=== PATIENT | female | born 1990 | race Caucasian/White ===

== ENCOUNTER 2017-03-02 16:46 | Emergency (ER) | payer MEDICAID ==
[2016-11-16 13:16] VITALS: BMI 31.4
[2017-03-02] MEDS ORDERED: guaiFENesin DM 200 mg-20 mg/10 ml UD PO STA (18:44)
[2017-03-02] MEDS ORDERED: Dextrose 5%/Lactated Ringer's 1,000 ML IV SCH (18:45)
[2017-03-02 20:01] LABS: RBC URINE 6 /hpf (0-3); URINE BACTERIA RARE (<OCC); URINE BILIRUBIN NEGATIVE (NEGATIVE); URINE BLOOD 2+ (NEGATIVE); URINE COLOR Yellow (YELLOW); URINE GLUCOSE (UA) NORMAL (Normal); URINE KETONE NEGATIVE (NEGATIVE); URINE LEUKOCYTE ESTERASE TRACE Leu/uL (Negative); URINE PROTEIN NEGATIVE (NEGATIVE); URINE UROBILINOGEN NORMAL mg/dL (0.2-1.0); WBC URINE 5 /hpf (0-5)
--- NOTE | 2017-04-22 00:19 | OBHP ---
Datetime: 03/02/2017 18:52 IP Adm Impression: , intrauterine IP Chief Complaint Other: Cough; abdominal pain IP Admit Plan: Observation/Evaluation IP Admit Plan Other: URI; candidiasis Admit Comment, IP Provider: 26 yo , LMP 07/16/16, revised LEONELA 04/29/17 (per patient), EGA 31w 6d c/o: 1) lower abdominal pain x 2-3 days. pressure; pain scale 7/10 to 8/10; no relief with tylenol; 2 ) coughing x 3 weeks. Non productive. Advised by Ob to take robitussin- no help. Completed one course of Z-pack 2 weeks ago. Denies fever, chills. Has 2 sick 1 y.o. infants at home (son and nephew). (+) mild occasional nausea; denies vomiting. Decreased appetite - e.g. today has only eaten a cookie, wi th cheese and juice. 3) vaginal spotting x 3 days. Last had sexual intercourse 07/2016. car e: [facility] - anemia. Last visit last week; next visit next week P Ob: x 2: 2010, male, 7lb 13 oz; 2015, male, 9 lb. 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 (For suppressive therapy at 36 weeks until delivery) PMH: anemia PSH: denies NKDA Meds: PNV, iron - QD Soc Hx: denies tobacco, illicit drug or EtOH use. FOB not involved. Lives with her children Fam Hx: Mother alive 50 y.o. DM. Father alive 51 y.o. HTN. MGM Breast cancer. (+) fam h /o throat and colon CA - maternal aunts P.E.: as above. Mildly obese, coughing; in NAD. Awake, alert, oriented to time, person and place. Pleasant and cooperative Assessment: 26 y.o. P2, 31w 6d: URI/ viral syndrome with possible post nasal drip. Presumptive vag inal candidiasis. Musculoskeletal pain - from all the coughing. record reviewed: ultrasound - no evidence of placenta praevia. Category 1 tracing. Clinically stable. Plan: 1) Rapid influenza culture 2) IVFs 3) Zofran, PRN 4) Tylenol 5) U/A 6) Observe Addendum: 2135 hours - Influenza negaative - U/A: blood 2+; leuk esterase trace; S.G. 1.016; ketones negative Assessment: as above. Patient advised to take benadryl 25 mg p.o. every 6 hours - may help cough. Also to F/U with medical provider for additoinal evaluation of persistent cough. lasatly, to eat smal l and frequent meals; and increase p.o. intacke of water. Patient is clincally stable. Plan: 1) Discharge home 2) Keep scheduled appointments 3) reviewed S/S PTL 4) Rx: terazol 3 vaginal cream 1 applcator pV QHS x 3 days Pelvic Type - PN: Adequate Extremities - PN: Normal Abdomen - PN: Normal Back - PN: Normal Breast - PN: Not Done Lungs - PN: Normal Heart - PN: Normal Thyroid - PN: Not Done Neurologic - PN: Normal HEENT - PN: Normal General - PN: Normal Presentation-Admit: Vertex FHR - Baseline A Provider: 160 Contraction Comments Provider: none Comments, ACOG Physical Exam: Skin: warm, dry, intact Abdomen: gravid. Soft. NOn tenderin allquadrants. Fundal height 34cm Perineum: no blood Spec: Initially no blood seen. No pooling; nitrazine (-). Upon removing speculum, dark red blood n oted at tip of speculum. All other systems reviewed and are negative. Gestation - Est Wks by US: 31w 6d Vital Signs Provider: Reviewed IP Chief Complaint: Vaginal bleeding NICHD Variability Prov Fetus A: Moderate 6-25bpm NICHD Accel Fetus A IP Provider: 10X10 FHR Category Provider Fetus A: Category I NICHD Decel Fetus A IP Provider: None Dilatation, Provider: 0 Effacement, Provider: 0 Station, Provider: -4 Genitourinary Exam: Normal DTRs - PN: Not Done
== END 2017-03-02 21:20 | disposition home or self-care (01) ==
LOC: C.EROB 16:46
DX: O26.899 Other specified pregnancy related conditions, unspecified trimester (principal); M54.9 Dorsalgia, unspecified
CPT/HCPCS: 81001; 87804; 99283; J2405; J7120

== ENCOUNTER 2017-04-22 00:05 | Inpatient (IN) | payer MEDICAID ==
--- NOTE | 2017-04-22 00:19 | C.PDOC ---
History Of Present Illness 26F presents after home deliver. pt was full term. has not yet delivered placenta. still c/o contractions at this time. Time Seen by Provider: 04/22/17 00:16 Past Medical History Vital Signs: Last Vital Signs Temp 98.1 F 04/23/17 11:00 Pulse 81 04/23/17 11:00 Resp 20 04/23/17 11:00 BP 112/64 04/23/17 11:00 Pulse Ox 99 04/23/17 11:00 - [facility] Procedures DELIVERY OF PRODUCTS OF CONCEPTION, EXTERNAL APPROACH (01/14/16) REPAIR PERINEUM MUSCLE, OPEN APPROACH (04/22/17) Family History: States: Unknown Family Hx - Social History Hx Tobacco Use: No Hx Alcohol Use: No Hx Substance Use: No - Immunization History Hx Tetanus Toxoid Vaccination: No Hx Influenza Vaccination: No Hx Pneumococcal Vaccination: No Review Of Systems Except As Marked, All Systems Reviewed And Found Negative. Constitutional: Negative for: Fever Cardiovascular: Negative for: Chest Pain Respiratory: Negative for: Cough, Shortness of Breath Gastrointestinal: Positive for: Abdominal Pain Physical Exam - Physical Exam Appears: Non-toxic, No Acute Distress Skin: Warm, Dry Head: Atraumatic Eye(s): bilateral: PERRL Oral Mucosa: Moist Cardiovascular: Rhythm Regular Respiratory: No Decreased Breath Sounds, No Accessory Muscle Use Gastrointestinal/Abdominal: Soft, Tenderness (suprapubic) Extremity: No Swelling Neurological/Psych: Oriented x3, Other (no focal deficits) ED Course And Treatment - Laboratory Results Result Diagrams: 04/23/17 07:15 04/22/17 01:26 Medical Decision Making Medical Decision Making: Dr Contreras present shortly after pt arrival. pt transferred up to L&D. Disposition - Disposition Disposition: HOSPITALIZED Disposition Time: 00:55 Condition: STABLE - Clinical Impression Clinical Impression: Vaginal delivery
[2017-04-22] MEDS ORDERED: Lidocaine 2% Inj (20ml) ONE (00:35)
[2017-04-22 00:49] VITALS: BMI 29.9
[2017-04-22] MEDS ORDERED: Oxycodone/Acetaminophen 5/325 mg Tab PO PRN ×2 (00:55)
--- NOTE | 2017-04-22 01:28 | OBADHP ---
Datetime: 04/22/2017 01:13 IP Chief Complaint Other: S/P extramural delivery IP Adm Impression Other: S/P extramural delivery Admit Comment, IP Provider: 26 y.o. , brought in by EMS after home delivery at 2330 hours. Mesha ent reports on set of contractions 2000 hours, then every 30 minutes. Over next 2 nours, increased in intensity and frequency; until about 22 hours every 10 minutes. At approximately, then every 1 -2 mi nutes. Spontaneous rupture of membranes at 2325 hours with vagnal delivery of live female infant at 2 330 hours. Ambulance notified and brought to E.D. In E.D., placenta noted to se still in situ; patien t nad transfered to Labor and Delivery, room #1. was attended to by mail sorting supervisor in E. D. and in LD#1: weight 6lb 11oz. On L_D, spontaneous delivery of placenta at 0026 hours, 04/22/17: gr ossly intact, 3 vessel cord. Examination of cervix, vagina and perineum revealed second degree perine al laceraton - repaired after infiltration of 2% lidocaine, using 2-0 chromic in routine fashion. Hem ostasis assured; placed on mother's abdomen for skin to skin. Both in stable condition. P Ob: x 2: both males; 05/2011, 7lb 13 oz. 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 Lives with her mother and her sons. FOB not invo lved. Fam Hx. Mother alive 50 - pre-DM. Father alive 51 - HTN. No known fam h/o cancer Assessment: 26 y.o. - S/P apparent uncomplicated extramural vaginal delivery. GBS (+) - pedi atircian made aware. Afebrile, vital signs stable. Clinically stable. Plan: 1) Admit 2) Regular diet in AM 3) Admission labs 4) post delivery CBC in AM 04/23/17 5) Gent/ clinda x 24 hours Pelvic Type - PN: Adequate Extremities - PN: Normal Abdomen - PN: Normal Back - PN: Normal Breast - PN: Normal Lungs - PN: Normal Heart - PN: Normal Thyroid - PN: Not Done Neurologic - PN: Normal HEENT - PN: Normal General - PN: Normal FHR - Baseline A Provider: N/A Contraction Comments Provider: N/A Comments, ACOG Physical Exam: Abdomen: Soft, non distended. Fundus firm, mobile, appropriatey tender , 2 FB above umbilicus. Second degree perineal laceratoin noted and repaired. All other systems reviewed and are negative Gestation - Est Wks by US: 37w 6d Vital Signs Provider: Reviewed IP Chief Complaint: Other Dilatation, Provider: N/A Genitourinary Exam: Abnormal DTRs - PN: Not Done EGA AdmitDate IP: 39.0 IP Admit Plan: Admit to unit Datetime: 03/02/2017 18:52 IP Admit Plan Other: URI; candidiasis Presentation-Admit: Vertex NICHD Variability Prov Fetus A: Moderate 6-25bpm NICHD Accel Fetus A IP Provider: 10X10 FHR Category Provider Fetus A: Category I NICHD Decel Fetus A IP Provider: None Effacement, Provider: 0 Station, Provider: -4 IP Adm Impression: , intrauterine
--- NOTE | 2017-04-22 01:30 | OBADHP ---
Datetime: 04/22/2017 01:13 Admit Comment, IP Provider: 26 y.o. , brought in by EMS after home delivery at 2330 hours. Mesha ent reports on set of contractions 2000 hours, then every 30 minutes. Over next 2 nours, increased in intensity and frequency; until about 22 hours every 10 minutes. At approximately, then every 1 -2 mi nutes. Spontaneous rupture of membranes at 2325 hours with vagnal delivery of live female infant at 2 330 hours. Ambulance notified and brought to E.D. In E.D., placenta noted to se still in situ; george israel transfered to Labor and Delivery, room #1. Infant was attended to by automation control technician in E. D. and in LD#1: weight 6lb 11oz. On L_D, spontaneous delivery of placenta at 0026 hours, 04/22/17: gr ossly intact, 3 vessel cord. Examination of cervix, vagina and perineum revealed second degree perine al laceraton - repaired after infiltration of 2% lidocaine, using 2-0 chromic in routine fashion. Hem ostasis assured; infant placed on mother's abdomen for skin to skin. Both in stable condition. P Ob: x 2: both males; 05/2011, 7lb 13 oz. 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 Lives with her mother and her sons. FOB not invo lved. Fam Hx. Mother alive 50 - pre-DM. Father alive 51 - HTN. No known fam h/o cancer Assessment: 26 y.o. - S/P apparent uncomplicated extramural vaginal delivery at 38w 6d. GBS (+) - pediatircian made aware. Afebrile, vital signs stable. Clinically stable. Plan: 1) Admit 2) Regular diet in AM 3) Admission labs 4) post delivery CBC in AM 04/23/17 5) Gent/ clinda x 24 hours Gestation - Est Wks by US: 38w 6d
[2017-04-22 01:31] LABS: BASO % 0.2 % (0.0-2.0); EOS # 0.1 K/uL (0.0-0.7); EOS % 0.6 % (0.0-4.0); HEMOGLOBIN 9.8 g/dL (11.0-16.0); LYMPH % 17.9 % (20.0-40.0); MEAN CELL VOLUME 70.7 fL (81.0-99.0); MEAN CORPUSCULAR HEMOGLOBIN 22.3 pg (27.0-31.0); MEAN CORPUSCULAR HGB CONC 31.6 g/dL (33.0-37.0); MEAN PLATELET VOLUME 8.5 fL (7.2-11.7); MONO # 1.6 K/uL (0.0-0.8); MONO % 9.4 % (0.0-10.0); NEUT % 71.9 % (50.0-75.0); RBC 4.39 Mil/uL (3.80-5.20); RED CELL DISTRIBUTION WIDTH 16.6 % (11.5-14.5); WHITE BLOOD COUNT 16.7 K/uL (4.8-10.8)
[2017-04-22 01:32] LABS: SQUAMOUS EPITHIAL 1 /hpf (0-5); URINE BILIRUBIN NEGATIVE (NEGATIVE); URINE BLOOD NEGATIVE (NEGATIVE); URINE CLARITY Clear (Clear); URINE COLOR Yellow (YELLOW); URINE GLUCOSE (UA) NORMAL (Normal); URINE LEUKOCYTE ESTERASE NEG Leu/uL (Negative); URINE NITRATE NEGATIVE (NEGATIVE); URINE PROTEIN NEGATIVE (NEGATIVE); URINE UROBILINOGEN NORMAL mg/dL (0.2-1.0)
--- NOTE | 2017-04-22 01:40 | OBDS ---
DELIVERY PERSONNEL Delivery Doctor: Peña Scott MD Scrub Nurse: Mary Montiel Estimator Jewelry: Tena Mata RN MATERNAL INFORMATION Medications in Delivery: PITOCIN Estimated Blood Loss (ml): 200 Placenta Cultured: Yes Maternal Complications: None RN Comments: HOME DELIVERY OF LIVE BABY GIRL @ 11:30PM ON 04/21/17 Provider Comments: Extra mural delivery of live female infant at 2330 hours. In E.D. infant's weight 6lb 11 oz. Spontaneous delivery of placenta 04/22/17 0026 hours - grossly intact and 3 vessel cord. E xamination of cervix, vagina, perineum - 2nd degree laceration noted and repaired as above. Hemostasi s assured. Mother and bonding - both in stable condition. LABOR SUMMARY EDC: 04/29/2017 00:00 Attempted: No Labor Anesthesia: None LABOR INFORMATION Reason for Induction: Not Applicable Onset of Labor: 04/21/2017 20:00 Oxytocin: N/A Group B Beta Strep: Positive Antibiotics # of Doses: 0 Steroids Given: None Reason Steroids Not Administered: Not Applicable MEMBRANES Membranes Rupture Method: Spontaneous Rupture of Membranes: 04/21/2017 23:25 Length of Rupture (hrs): 0.08 STAGES OF LABOR Stage 3 hrs: 0 Stage 3 min: 56 Total Time in Labor hrs: 4 Total Time in Labor min: 26 VAGINAL DELIVERY Episiotomy: None Laceration Extension: Second Degree Laceration Type: Perineal Other Laceration: 2.0 CHROMIC Laceration Repair: Yes Laceration Repair Note: 2-0 chromic in rutine fshion Initial Vag Sponge Count: 10 Final Vag Sponge Count: 10 Initial Vag Sharps Count: 0 Final Vag Sharps Count: 1 Sponge Count Correct: Yes Sharps Count Correct: Yes Count Comment: Correct BABY A INFORMATION Delivery Date/Time: 04/21/2017 23:30 Method of Delivery: Vaginal Born in Route : Yes : N/A Forceps: N/A Vacuum Extraction: N/A Shoulder Dystocia : No SHOULDER DYSTOCIA BABY A Infant Delivery Date/Time: 04/21/2017 23:30 PLACENTA INFORMATION BABY A Placenta Delivery Time : 04/22/2017 00:26 Placenta Method of Delivery: Spontaneous Placenta Status: Delivered INFORMATION BABY A Gestational Age at Delivery: 39.0 Gestational Status: Term Outcome : Liveborn Condition : Stable Sex: Female IDENTIFICATION/MEDS BABY A ID Band Number: [id number] ID Band Location: Left Leg; Left Arm Sensor Applied: Yes Sensor Number: [id number] Sensor Location : Cord Clamp Vitamin K Given : Aquamephyton 1 mg IM; Left Thigh Erythromycin Given: Given Both Eyes WEIGHT/LENGTH BABY A Infant Birthweight (gms): 3035 Weight (lb): 6 Weight (oz): 11 Infant Length Inches: 19.00 Length cms: 48.3 CORD INFORMATION BABY A No. Cord Vessels: 3 ASSESSMENT BABY A Infant Complications: None Physical Findings at Delivery: Within Normal Limits Respirations: Appears Normal Qualifications Examiner/ALS Called : No
[2017-04-22 01:42] LABS: ALBUMIN 3.3 g/dL (3.5-5.0)
[2017-04-22 01:44] LABS: GFR AFRICAN-AMERICAN > 60; GFR NON-AFRICAN AMERICAN > 60
[2017-04-22 01:45] LABS: ALT/SGPT 21 U/L (9-52); AST/SGOT 17 U/L (14-36); BLOOD UREA NITROGEN 8 mg/dL (7-17)
[2017-04-22 01:46] LABS: BARBITURATES, UR NEGATIVE (NEGATIVE); BENZODIAZEPINES, UR NEGATIVE (NEGATIVE); CALCIUM 8.5 mg/dl (8.6-10.4)
[2017-04-22 01:50] LABS: OPIATES, UR NEGATIVE (NEGATIVE); PHENCYCLIDINE, UR NEGATIVE (NEGATIVE)
[2017-04-22] MEDS ORDERED: Clindamycin 600mg/50ml D5W 600 MG/50 ML VIAL IVPB ONE (02:13)
[2017-04-22] MEDS: Clindamycin 600mg/50ml D5W 600 MG/50 ML VIAL IVPB SCH ×4 (02:14→18:30)
[2017-04-22] MEDS: Benzocaine/Menthol 20%-0.5% Topical Spray (60 ml) TOP PRN (03:07)
[2017-04-22] MEDS ORDERED: Prenatal Multivit/Folic Acid/Iron Tab PO SCH (10:00)
[2017-04-22 10:14] VITALS: RESP 20; O2SAT 99
--- NOTE | 2017-04-22 13:53 | OBPPN ---
Datetime: 04/22/2017 08:31 PP Pain Prov: Within normal limits PP Nausea Prov: Denies PP Flatus Prov: Yes PP Heart Prov: Normal PP Lungs Prov: Normal PP Abdomen/Uterus Prov: Normal PP Lochia Prov: Normal PP CVA Tenderness Prov: Normal PP Extremities Prov: Normal PP C/S Incision Prov: Not Applicable PP Progress Prov: Normal PP Impression Prov: Normal progression PP Plan Prov: Continue present management PP Progress Note Prov: S-patient denies any complaints.Tolerating regular diet.ambulating and voidin g with out difficulty.denies nausea, vomiting, headache, chest pain, shortness of breath, numbness or tingling in hands and feet O-VSS afebrile Abdomen soft and nontender Fundus firm and below umbilicus Extremities no calf tenderness A/P Patient s/p vaginal delivery ppd 1 .Patient delivered at home.Patient with elevated cbc on adm ission.On gentamicin and clindamycin for 24 hours -repeat cb pending -continue routine pp care Vital Signs Provider PP: Reviewed; Within Normal Limits
[2017-04-23 07:26] LABS: BASO % 0.2 % (0.0-2.0); EOS # 0.4 K/uL (0.0-0.7); EOS % 2.6 % (0.0-4.0); HEMOGLOBIN 9.2 g/dL (11.0-16.0); LYMPH # 3.6 K/uL (1.0-4.3); LYMPH % 26.4 % (20.0-40.0); MEAN CELL VOLUME 70.6 fL (81.0-99.0); MEAN CORPUSCULAR HEMOGLOBIN 22.6 pg (27.0-31.0); MEAN PLATELET VOLUME 8.2 fL (7.2-11.7); MONO # 0.9 K/uL (0.0-0.8); MONO % 6.5 % (0.0-10.0); NEUT # 8.8 K/uL (1.8-7.0); NEUT % 64.3 % (50.0-75.0); RBC 4.07 Mil/uL (3.80-5.20); RED CELL DISTRIBUTION WIDTH 16.7 % (11.5-14.5); WHITE BLOOD COUNT 13.7 K/uL (4.8-10.8)
--- NOTE | 2017-04-23 07:50 | OBPPN ---
Datetime: 04/23/2017 07:48 PP Pain Prov: Within normal limits PP Nausea Prov: Denies PP Flatus Prov: Yes PP Abdomen/Uterus Prov: Normal PP Lochia Prov: Normal PP Extremities Prov: Normal PP Comments Phys Exam Prov: fudus below umb ext no edema,no calf ten PP Impression Prov: Normal progression PP Plan Prov: Discharge PP Progress Note Prov: pt was seen at berd side, pain under control, no n/v, tolerating deit,voiding ,min lochia, flatus+ ppd#2 s/p dc home no sex motrin prn f/u in 6weeks Vital Signs Provider PP: Reviewed; Within Normal Limits
--- NOTE | 2017-04-23 07:53 | OBDCSUM ---
Datetime: 04/23/2017 07:50 Discharged to, Provider: Home Follow up at, Provider: 6wee Disch Instr Activity: Normal activity Disch Instr Diet: Regular Discharge Diagnosis, Provider: Term Delivered Follow up in weeks, Provider: clinic Disch Activity Restrictions: No exercising; No lifting; No driving; Minimize walking; No sexual acti vity; Nothing in vagina - [place], tampons, douche Discharge Comment, Provider: no sex motrin prn f/u in 6wee Discharge Diagnosis Prov Other: s/p delivery at home
[2017-04-23] MEDS: Benzocaine/Menthol 20%-0.5% Topical Spray (60 ml) TOP PRN (09:26)
[2017-04-23 12:24] VITALS: BP 112/64; PULSE 81; TEMP 98.1
== END 2017-04-23 11:27 | disposition home or self-care (01) | DRG 373 ==
LOC: C.ER 00:05 → C.4D 00:29 → C.4M 02:51
PROVIDERS: ADMIT Obstetrics & Gynecology; ATTEND Obstetrics & Gynecology
PROC: 0KQM0ZZ Repair Perineum Muscle, Open Approach (ICD-10-PCS; principal; 2017-04-22)
DX: O70.1 Second degree perineal laceration during delivery (principal); O99.824 Streptococcus B carrier state complicating childbirth; Z3A.39 39 weeks gestation of pregnancy

== ENCOUNTER 2018-03-24 12:02 | Emergency (ER) | payer MEDICAID ==
[2018-03-24 12:07] VITALS: BMI 29.6
[2018-03-24 12:18] VITALS: TEMP 99.1; O2SAT 98
[2018-03-24 13:03] LABS: SQUAMOUS EPITHIAL 7 /hpf (0-5); URINE BILIRUBIN NEGATIVE (NEGATIVE); URINE BLOOD 1+ (NEGATIVE); URINE CLARITY Hazy (Clear); URINE COLOR Yellow (YELLOW); URINE GLUCOSE (UA) NORMAL (Normal); URINE LEUKOCYTE ESTERASE 3+ Leu/uL (Negative); URINE PROTEIN NEGATIVE (NEGATIVE); URINE UROBILINOGEN NORMAL mg/dL (0.2-1.0)
--- NOTE | 2018-03-24 13:05 | C.PDOC ---
History Of Present Illness 27 year old female presents to the ED for evaluation of colicky abdominal pain which began at around 0500 today. Patient states she is 6 weeks . She denies fever, chills, dysuria. Time Seen by Provider: 03/24/18 13:00 Chief Complaint (Nursing): Abdominal Pain History Per: Patient History/Exam Limitations: no limitations Onset/Duration Of Symptoms: Hrs Current Symptoms Are (Timing): Still Present Location Of Pain/Discomfort: Epigastric Associated Symptoms: denies: Fever, Chills, Urinary Symptoms Additional History Per: Patient Abnormal Vaginal Bleeding: No Past Medical History Reviewed: Historical Data, Nursing Documentation, Vital Signs Vital Signs: Last Vital Signs Temp 99.1 F 03/24/18 12:14 Pulse 78 03/24/18 15:22 Resp 18 03/24/18 15:22 BP 124/70 03/24/18 15:22 Pulse Ox 98 03/24/18 17:32 - Medical History PMH: No Chronic Diseases Surgical History: No Surg Hx - [facility] Procedures DELIVERY OF PRODUCTS OF CONCEPTION, EXTERNAL APPROACH (01/14/16) REPAIR PERINEUM MUSCLE, OPEN APPROACH (04/22/17) Family History: States: Unknown Family Hx - Social History Hx Tobacco Use: No Hx Alcohol Use: No Hx Substance Use: No - Immunization History Hx Tetanus Toxoid Vaccination: No Hx Influenza Vaccination: No Hx Pneumococcal Vaccination: No Review Of Systems Constitutional: Negative for: Fever, Chills Gastrointestinal: Positive for: Abdominal Pain (epigastric ) Genitourinary: Negative for: Dysuria Physical Exam - Physical Exam Appears: Non-toxic, No Acute Distress Skin: Normal Color, Warm, Dry Head: Atraumatic, Normacephalic Eye(s): bilateral: Normal Inspection Oral Mucosa: Moist Neck: Supple Chest: Symmetrical, No Deformity, No Tenderness Cardiovascular: Rhythm Regular, No Murmur Respiratory: Normal Breath Sounds, No Rales, No Rhonchi, No Wheezing Gastrointestinal/Abdominal: Soft, No Guarding, No Rebound, Other (obese, tympanic in epigastrium, dull in left abdominal region ) Pelvic: No Adnexal Tenderness Extremity: Normal ROM, Capillary Refill (less than 2 seconds ) Neurological/Psych: Oriented x3, Normal Speech, Normal Cognition ED Course And Treatment - Laboratory Results Result Diagrams: 03/24/18 13:16 03/24/18 13:16 Lab Interpretation: Normal (quant HCG 49,026, A+) Urine POC: Positive O2 Sat by Pulse Oximetry: 98 (on RA) Pulse Ox Interpretation: Normal - Other Rad vag US X-Ray: Interpreted by Me, Read By Radiologist (normal IUP) Progress Note: Bloodwork, urinalysis, Ultrasound ordered and reviewed. Reevaluation Time: 15:00 Reassessment Condition: Improved Medical Decision Making Medical Decision Making: normal IUP normal w/u. tympanic epigastrum, dull to LLQ c/w constipation trial laxative diet and exercise educated. Disposition Doctor Will See Patient In The: Office Counseled Patient/Family Regarding: Studies Performed, Diagnosis - Disposition Referrals: [facility] [Outside] [facility] [Outside] [facility] [Outside] Basil Batres MD [Medical Doctor] - Disposition: HOME/ ROUTINE Disposition Time: 15:00 Condition: GOOD Additional Instructions: Embarasso: Sigue parker vitamina pre- diario Sigue en la Clinica de [facility]- siguente examen de Ultrasonido con 12 semanas de embarasso Estrenemiento: Tammie un purgante ahoa y re-evalua parker molestia del abdomen despues de usar en jake 2-3 veces Recommendamos que tammie moreno botella de Citrato de Magnesio entero Repita femi necessario. Cambios de dieta y ejercisio Tammie mas agua. Sigue en la Clinica Familiar femi necessario. Instructions: Constipation, Adult (DC), - The Second Month Forms: [employer] (Tajik) Print Language: ROMANSH - Clinical Impression Clinical Impression: , Colicky LLQ abdominal pain - Scribe Statement The provider has reviewed the documentation as recorded by the Scribe (Jeannie Huizar) Provider Attestation: All medical record entries made by the Scribe were at my direction and personally dictated by me. I have reviewed the chart and agree that the record accurately reflects my personal performance of the history, physical exam, medical decision making, and the department course for this patient. I have also personally directed, reviewed, and agree with the discharge instructions and disposition.
[2018-03-24 13:22] LABS: BASO # 0.1 K/uL (0.0-0.2); BASO % 0.7 % (0.0-2.0); EOS # 0.1 K/uL (0.0-0.7); LYMPH # 1.5 K/uL (1.0-4.3); LYMPH % 14.4 % (20.0-40.0); MEAN CORPUSCULAR HEMOGLOBIN 25.8 pg (27.0-31.0); MEAN PLATELET VOLUME 7.4 fL (7.2-11.7); MONO # 0.6 K/uL (0.0-0.8); MONO % 5.7 % (0.0-10.0); NEUT % 78.2 % (50.0-75.0); RBC 4.48 Mil/uL (3.80-5.20); RED CELL DISTRIBUTION WIDTH 17.7 % (11.5-14.5); WHITE BLOOD COUNT 10.2 K/uL (4.8-10.8)
[2018-03-24 13:23] LABS: HEMOGLOBIN 11.6 g/dL (11.0-16.0)
[2018-03-24 13:43] LABS: ALB/GLOB RATIO 1.3 (1.0-2.1); ALBUMIN 3.9 g/dL (3.5-5.0); ALT/SGPT 29 U/L (9-52); AST/SGOT 24 U/L (14-36); BLOOD UREA NITROGEN 8 mg/dL (7-17); CALCIUM 8.5 mg/dl (8.6-10.4); GFR AFRICAN-AMERICAN > 60; GFR NON-AFRICAN AMERICAN > 60
--- NOTE | 2018-03-24 14:57 | US ---
PROCEDURE: OB Pelvic Ultrasound HISTORY: epigastric pain, 7 wks preg COMPARISON: None available. FINDINGS: UTERUS: Single Live intrauterine gestation. CRL measures 0.83 cm equivalent to 6 weeks and 5 days gestatioin Gestational sac diameter measures 1.95 cm equivalent to 6 weeks and 3 days gestation age (Ultrasound estimated): 6 weeks and 4 days Date of delivery (Ultrasound estimated) : 11/13/2018 Heart rate: 100 bpm. Carmina-gestational hemorrhage: None. Uterus measures 11.6 x 6.3 x 8.2 cm. No mass CERVIX: Long and closed. No cervical abnormality seen. RIGHT OVARY: Measures 3.8 x 2.4 x 3.1 cm. No mass. Normal flow. There is a 2.7 cm corpus luteum cyst. LEFT OVARY: Measures 3.6 x 2.2 x 2.7 cm. No mass. Normal flow. FREE FLUID: None. OTHER FINDINGS: None. IMPRESSION: Single live intrauterine gestation with mean gestational age of 6 weeks and 4 days. The estimated date of delivery by ultrasound is 11/13/2018.
[2018-03-24 15:23] VITALS: BP 124/70; PULSE 78; RESP 18
== END 2018-03-24 15:22 | disposition home or self-care (01) ==
LOC: C.ER 12:02
DX: O26.891 Other specified pregnancy related conditions, first trimester (principal); R10.32 Left lower quadrant pain; Z3A.01 Less than 8 weeks gestation of pregnancy

== ENCOUNTER 2018-04-15 18:24 | Emergency (ER) | payer MEDICAID ==
[2018-04-15 18:25] VITALS: BMI 29.6
--- NOTE | 2018-04-15 20:18 | C.PDOC ---
History Of Present Illness 27 year old female presents to the ER with a complaint of cold, cough, congestion, and runny nose for the past 2 weeks. Denies fever, vomiting, or diarrhea. Time Seen by Provider: 04/15/18 19:19 Chief Complaint (Nursing): Cough, Cold, Congestion History Per: Patient History/Exam Limitations: no limitations Onset/Duration Of Symptoms: Days Current Symptoms Are (Timing): Still Present Recent travel outside of the [place]: No Past Medical History Reviewed: Historical Data, Nursing Documentation, Vital Signs Vital Signs: Last Vital Signs Temp 99 F 04/15/18 20:32 Pulse 86 04/15/18 20:32 Resp 18 04/15/18 20:32 BP 120/78 04/15/18 20:32 Pulse Ox 99 04/15/18 22:01 - [facility] [employer] [facility] Procedures DELIVERY OF PRODUCTS OF CONCEPTION, EXTERNAL APPROACH (01/14/16) REPAIR PERINEUM MUSCLE, OPEN APPROACH (04/22/17) Family History: States: Unknown Family Hx - Social History Hx Tobacco Use: No Hx Alcohol Use: No Hx Substance Use: No - Immunization History Hx Tetanus Toxoid Vaccination: No Hx Influenza Vaccination: No Hx Pneumococcal Vaccination: No Review Of Systems Constitutional: Negative for: Fever ENT: Positive for: Nose Discharge, Nose Congestion Respiratory: Positive for: Cough Gastrointestinal: Negative for: Vomiting, Diarrhea Genitourinary: Negative for: Dysuria, Hematuria Skin: Negative for: Rash Physical Exam - Physical Exam Appears: Non-toxic Skin: Normal Color, Warm, Dry Head: Atraumatic, Normacephalic Eye(s): bilateral: Normal Inspection Ear(s): Bilateral: Normal Nose: Discharge (Clear) Oral Mucosa: Moist Throat: Normal, No Erythema, No Exudate Neck: Normal, Supple Chest: Symmetrical, No Tenderness Cardiovascular: Rhythm Regular Respiratory: Normal Breath Sounds, No Rales, No Rhonchi, No Wheezing Gastrointestinal/Abdominal: Soft, No Tenderness Back: No CVA Tenderness Extremity: Normal ROM (x4) Neurological/Psych: Oriented x3, Normal Speech ED Course And Treatment O2 Sat by Pulse Oximetry: 99 (Room air) Pulse Ox Interpretation: Normal Medical Decision Making Medical Decision Making: Claritin administered. On reevaluation, patient is resting comfortably in the ER in no acute distress, afebrile, vitals are stable, will discharge home with Rx and instructions to follow up with PMD. Disposition - Disposition Referrals: Jesenia Batres APN [Non-Staff] - Disposition: HOME/ ROUTINE Disposition Time: 20:15 Condition: GOOD Additional Instructions: Follow up with the medical doctor within 1-2 days without fail. Return if worsened. Prescriptions: Acetaminophen [Tylenol] 325 mg PO Q6 PRN #30 tab PRN Reason: Fever >100.4 F Loratadine [Claritin] 10 mg PO DAILY #10 tab Instructions: Upper Respiratory Infection (ED) Forms: [employer] (Sao T[place]an) - Clinical Impression Clinical Impression: Upper respiratory infection - PA / VOICE AND DATA TECHNICIAN / Resident Statement MD/DO has reviewed & agrees with the documentation as recorded. - Scribe Statement The provider has reviewed the documentation as recorded by the Scribbolivar Ruth All medical record entries made by the Scribbolivar were at my direction and personally dictated by me. I have reviewed the chart and agree that the record accurately reflects my personal performance of the history, physical exam, medical decision making, and the department course for this patient. I have also personally directed, reviewed, and agree with the discharge instructions and disposition.
[2018-04-15 20:30] VITALS: BP 120/78
[2018-04-15 20:42] VITALS: PULSE 86; RESP 18; TEMP 99; O2SAT 99
== END 2018-04-15 21:20 | disposition home or self-care (01) ==
LOC: C.ER 18:24
DX: J06.9 Acute upper respiratory infection, unspecified (principal)

== ENCOUNTER 2018-04-17 10:16 | Emergency (ER) | payer MEDICAID ==
[2018-04-17 10:17] VITALS: BMI 29.6
--- NOTE | 2018-04-17 11:58 | C.PDOC ---
History Of Present Illness 27 y/o female presents to the ED complaining of persistent cough for the past few weeks. Of note, patient is currently 11 weeks . Patient was seen here 2 days ago for the same non-productive cough. States she tried taking Claritin as well as Tylenol yesterday with no improvement. She also notes her left side hurts when coughing. Otherwise denies any shortness of breath, chest pain, fever, wheezing, nausea, or vomiting. Time Seen by Provider: 04/17/18 11:23 Chief Complaint (Nursing): Cough, Cold, Congestion History Per: Patient History/Exam Limitations: no limitations Onset/Duration Of Symptoms: Days Current Symptoms Are (Timing): Still Present Past Medical History Reviewed: Historical Data, Nursing Documentation, Vital Signs Vital Signs: Last Vital Signs Temp 98.7 F 04/17/18 11:03 Pulse 84 04/17/18 11:03 Resp 18 04/17/18 11:03 BP 111/72 04/17/18 11:03 Pulse Ox 98 04/17/18 11:58 Surgical History: No Surg Hx - [facility] Procedures DELIVERY OF PRODUCTS OF CONCEPTION, EXTERNAL APPROACH (01/14/16) REPAIR PERINEUM MUSCLE, OPEN APPROACH (04/22/17) Family History: States: Unknown Family Hx - Social History Hx Tobacco Use: No Hx Alcohol Use: No Hx Substance Use: No - Immunization History Hx Tetanus Toxoid Vaccination: No Hx Influenza Vaccination: No Hx Pneumococcal Vaccination: No Review Of Systems Except As Marked, All Systems Reviewed And Found Negative. Constitutional: Negative for: Fever Cardiovascular: Negative for: Chest Pain Respiratory: Positive for: Cough. Negative for: Shortness of Breath, Sputum, Wheezing Gastrointestinal: Negative for: Nausea, Vomiting Physical Exam - Physical Exam Appears: Well, Non-toxic, No Acute Distress Skin: Warm, Dry Head: Atraumatic, Normacephalic Eye(s): bilateral: Normal Inspection Nose: Normal Oral Mucosa: Moist Throat: Normal, No Erythema, No Exudate Neck: Normal ROM, Supple Chest: Symmetrical, No Deformity, No Tenderness Cardiovascular: Rhythm Regular, No Murmur Respiratory: Normal Breath Sounds (Lungs are clear bilaterally), No Accessory Muscle Use, No Rales, No Rhonchi, No Wheezing Gastrointestinal/Abdominal: Soft, No Tenderness Extremity: Bilateral: Atraumatic, Normal Color And Temperature, Normal ROM Neurological/Psych: Oriented x3, Normal Speech ED Course And Treatment O2 Sat by Pulse Oximetry: 98 (RA) Pulse Ox Interpretation: Normal Medical Decision Making Medical Decision Making: Plan: Patient requesting cough medication. Counseled patient regarding medications that are safe in . Advised patient to take hot baths, apply Vicks, and rest. Patient remains afebrile, AAOx3, in no acute respiratory distress. Lungs are clear to auscultation bilaterally. Patient is stable for discharge home. Advised to follow up with PMD or OB for further evaluation. Disposition - Disposition Referrals: Basil Batres MD [Medical Doctor] - Disposition: HOME/ ROUTINE Disposition Time: 12:03 Condition: GOOD Additional Instructions: TRY HONEY AND LEMON TEA. Follow up with the medical doctor/clinic within 1-2 days without fail. Return if worsened. Instructions: Viral Upper Respiratory Infection, Adult (DC) Forms: [employer] ([employer]) - Clinical Impression Clinical Impression: Upper respiratory infection - PA / EASTERN PHILOSOPHY PROFESSOR / Resident Statement MD/DO has reviewed & agrees with the documentation as recorded. - Scribe Statement The provider has reviewed the documentation as recorded by the Scribe (Mary Ortega) All medical record entries made by the Scribe were at my direction and personally dictated by me. I have reviewed the chart and agree that the record accurately reflects my personal performance of the history, physical exam, medical decision making, and the department course for this patient. I have also personally directed, reviewed, and agree with the discharge instructions and disposition.
[2018-04-17 12:18] VITALS: BP 104/69; PULSE 85; RESP 16; TEMP 98.9; O2SAT 100
== END 2018-04-17 12:26 | disposition home or self-care (01) ==
LOC: C.ER 10:16
DX: J06.9 Acute upper respiratory infection, unspecified (principal); O99.511 Diseases of the respiratory system complicating pregnancy, first trimester; Z3A.11 11 weeks gestation of pregnancy

== ENCOUNTER 2018-06-08 13:02 | Emergency (ER) | payer MEDICAID ==
[2018-06-08 13:02] VITALS: BMI 29.6
[2018-06-08 13:15] VITALS: RESP 18
--- NOTE | 2018-06-08 14:04 | C.PDOC ---
History Of Present Illness 27 y/o female, , presents to the ER complaining of lower abdominal pain which has been present for the past 1 week. Patient states that she has associated vaginal discharge which is "creamy color." Patient denies having nausea, vomiting, and diarrhea. Chief Complaint (Nursing): Abdominal Pain History Per: Patient History/Exam Limitations: no limitations Onset/Duration Of Symptoms: Days Current Symptoms Are (Timing): Still Present Severity: Moderate Past Medical History Reviewed: Historical Data, Nursing Documentation, Vital Signs Vital Signs: Last Vital Signs Temp 98.8 F 06/08/18 16:42 Pulse 85 06/08/18 16:42 Resp 18 06/08/18 16:42 BP 111/71 06/08/18 16:42 Pulse Ox 99 06/08/18 16:42 - Medical History PMH: No Chronic Diseases Surgical History: No Surg Hx - [facility] Procedures DELIVERY OF PRODUCTS OF CONCEPTION, EXTERNAL APPROACH (01/14/16) REPAIR PERINEUM MUSCLE, OPEN APPROACH (04/22/17) Family History: States: No Known Family Hx - Social History Hx Tobacco Use: No Hx Alcohol Use: No Hx Substance Use: No - Immunization History Hx Tetanus Toxoid Vaccination: No Hx Influenza Vaccination: No Hx Pneumococcal Vaccination: No Review Of Systems Except As Marked, All Systems Reviewed And Found Negative. Constitutional: Negative for: Fever, Chills Gastrointestinal: Positive for: Abdominal Pain. Negative for: Nausea, Vomiting , Diarrhea Genitourinary: Positive for: Vaginal Discharge Physical Exam - Physical Exam Appears: Non-toxic, No Acute Distress Skin: Normal Color, Warm, Dry Head: Atraumatic, Normacephalic Eye(s): bilateral: Normal Inspection Nose: Normal Oral Mucosa: Moist Neck: Supple Chest: Symmetrical Cardiovascular: Rhythm Regular Respiratory: Normal Breath Sounds, No Rales, No Rhonchi, No Wheezing Gastrointestinal/Abdominal: Soft, Tenderness (suprapubic tenderness), No Guarding, No Rebound Neurological/Psych: Oriented x3, Normal Speech ED Course And Treatment - Laboratory Results Result Diagrams: 06/08/18 14:15 06/08/18 14:15 O2 Sat by Pulse Oximetry: 95 (RA) Pulse Ox Interpretation: Normal - CT Scan/US US- OB Pelvic Other Rad Studies (CT/US): Read By Radiologist, Radiology Report Reviewed CT/US Interpretation: Date of service: 06/08/2018. PROCEDURE: OB Pelvic Ultrasound. HISTORY: abdominal pain in . LMP: 02/01/2018. COMPARISON: None available. FINDINGS: UTERUS: Placenta: Posterior. Presentation: Vertex. BPD: 3.9 cm compatible with estimated gestational age of 17 weeks, 6 days. HC: 14.9 cm compatible with estimated gestational age of 18 weeks, 0 days. AC: 11.8 cm compatible with estimated gestational age is 17 weeks, 4 days. FL: 2.5 cm compatible with estimated gestational age of 17 weeks , 4 days. Heart rate: 142 bpm. age (Ultrasound estimated): 17 weeks, 5 days. Carmina-gestational hemorrhage: None. Date of delivery ( Ultrasound estimated) : 11/11/2018. EFW: 200.6 grams 30 0.1 grams (7 ounces 1 ounce). CERVIX: Measures 3.4 cm. Long and closed. No cervical abnormality seen. FREE FLUID: None. OTHER FINDINGS: None. IMPRESSION: Single live intrauterine gestation with average ultrasound age of 17 weeks, 5 days. heart rate 142 beats per minute. Cervix long and closed. 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 Instructions: Threatened Miscarriage Forms: [facility] (Kazakh), Work Excuse - Clinical Impression Clinical Impression: Abdominal pain affecting - Scribe Statement The provider has reviewed the documentation as recorded by the Royal Arreola Provider Attestation: All medical record entries made by the Carolibbolivar were at my direction and personally dictated by me. I have reviewed the chart and agree that the record accurately reflects my personal performance of the history, physical exam, medical decision making, and the department course for this patient. I have also personally directed, reviewed, and agree with the discharge instructions and disposition.
[2018-06-08 14:23] LABS: BASO % 0.1 % (0.0-2.0); EOS # 0.1 K/uL (0.0-0.7); EOS % 0.7 % (0.0-4.0); HEMOGLOBIN 10.9 g/dL (11.0-16.0); LYMPH # 2.3 K/uL (1.0-4.3); LYMPH % 16.9 % (20.0-40.0); MEAN CELL VOLUME 76.3 fL (81.0-99.0); MEAN CORPUSCULAR HEMOGLOBIN 25.5 pg (27.0-31.0); MEAN CORPUSCULAR HGB CONC 33.5 g/dL (33.0-37.0); MEAN PLATELET VOLUME 7.9 fL (7.2-11.7); MONO % 7.7 % (0.0-10.0); NEUT % 74.6 % (50.0-75.0); RBC 4.27 Mil/uL (3.80-5.20); RED CELL DISTRIBUTION WIDTH 17.1 % (11.5-14.5); WHITE BLOOD COUNT 13.4 K/uL (4.8-10.8)
[2018-06-08 14:36] LABS: ALB/GLOB RATIO 1.1 (1.0-2.1); ALBUMIN 3.5 g/dL (3.5-5.0); ALT/SGPT 21 U/L (9-52); AST/SGOT 21 U/L (14-36); BLOOD UREA NITROGEN 6 mg/dL (7-17); CALCIUM 8.7 mg/dl (8.6-10.4); GFR NON-AFRICAN AMERICAN > 60
[2018-06-08 14:39] LABS: SQUAMOUS EPITHIAL 10 /hpf (0-5); URINE BACTERIA RARE (<OCC); URINE BILIRUBIN NEGATIVE (NEGATIVE); URINE BLOOD NEGATIVE (NEGATIVE); URINE CLARITY Clear (Clear); URINE COLOR Yellow (YELLOW); URINE GLUCOSE (UA) NORMAL (Normal); URINE LEUKOCYTE ESTERASE 2+ Leu/uL (Negative); URINE PROTEIN NEGATIVE (NEGATIVE); URINE UROBILINOGEN NORMAL mg/dL (0.2-1.0)
--- NOTE | 2018-06-08 16:23 | US ---
Date of service: 06/08/2018 PROCEDURE: OB Pelvic Ultrasound HISTORY: abdominal pain in LMP: 02/01/2018 COMPARISON: None available. FINDINGS: UTERUS: Placenta: Posterior. Presentation: Vertex. BPD: 3.9 cm compatible with estimated gestational age of 17 weeks, 6 days. HC: 14.9 cm compatible with estimated gestational age of 18 weeks, 0 days. AC: 11.8 cm compatible with estimated gestational age is 17 weeks, 4 days. FL: 2.5 cm compatible with estimated gestational age of 17 weeks, 4 days. Heart rate: 142 bpm. age (Ultrasound estimated): 17 weeks, 5 days Carmina-gestational hemorrhage: None. Date of delivery (Ultrasound estimated) : 11/11/2018 EFW: 200.6 grams 30 0.1 grams (7 ounces 1 ounce) CERVIX: Measures 3.4 cm. Long and closed. No cervical abnormality seen. FREE FLUID: None. OTHER FINDINGS: None. IMPRESSION: Single live intrauterine gestation with average ultrasound age of 17 weeks, 5 days. heart rate 142 beats per minute. Cervix long and closed.
[2018-06-08 16:43] VITALS: BP 111/71; PULSE 85; TEMP 98.8
[2018-06-14 10:22] VITALS: O2SAT 95
== END 2018-06-08 17:05 | disposition home or self-care (01) ==
LOC: C.ER 13:02
DX: O26.892 Other specified pregnancy related conditions, second trimester (principal); Z3A.17 17 weeks gestation of pregnancy; R10.30 Lower abdominal pain, unspecified

== ENCOUNTER 2018-10-06 11:29 | Emergency (ER) | payer MEDICAID ==
[2018-10-06] MEDS ORDERED: guaiFENesin 100 mg/5 ml Syrup UD PO PRN (12:36)
[2018-10-06] MEDS ORDERED: Benzocaine/Menthol (Cepacol) Lozenge MT PRN (12:37)
[2018-10-06 13:51] LABS: URINE BILIRUBIN NEGATIVE (NEGATIVE); URINE CLARITY Clear (Clear); URINE COLOR Yellow (YELLOW); URINE GLUCOSE (UA) NORMAL (Normal)
[2018-10-06 13:52] LABS: SQUAMOUS EPITHIAL 4 /hpf (0-5); URINE BACTERIA OCC (<OCC); URINE BLOOD NEGATIVE (NEGATIVE); URINE LEUKOCYTE ESTERASE 2+ Leu/uL (Negative); URINE PROTEIN NEGATIVE (NEGATIVE); URINE UROBILINOGEN NORMAL mg/dL (0.2-1.0)
[2018-10-06 18:16] VITALS: BP 98/38; PULSE 92; RESP 20; TEMP 97.9; O2SAT 99
--- NOTE | 2018-10-06 19:17 | OBHP ---
Datetime: 10/06/2018 13:59 IP Adm Impression: No Active Labor IP Admit Plan: Discharge home Admit Comment, IP Provider: SUBJECTIVE: CC: sore throat, cough HPI: Melanie is a pleasant 28 year old at 34.4 weeks with no significant PMH who presents to OB ED with the complaint of non-productive cough and sore throat that have been worsening over the past 3 days. She states that has not taken anything to help her symptoms. She was concerned and unsure wh ether she should take anything with her . She reports good movement but denies vaginal bleeding, leakage of fluid, or feeling contractions at this time. She has been following up with [facility] for pre- care. 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 OBJECTIVE: Afebrile, other normal physical exam findings as above ASSESSEMENT: 28 year old at 34.4 weeks gestation with upper respiratory infection symptoms Mild Dehydration. PLAN: Suspect patient's symptoms are most likely due to upper respiratory viral infection. Throat is gretchen ar on examination and cough is present. Received Robitussin po as well as Throat Lozenges and po water and felt much better Instructed patient that she may take robitussin and use throat lozenges for sore throat/cough reli ef. No acute obstetric changes at this time. Will discharge home with outpatient follow up as needed. NST reactive, No contractions Patient seen, examined, and plan discussed with Dr. Isidro Brian, DO, PGY-1 Pelvic Type - PN: Adequate Extremities - PN: Normal Abdomen - PN: Normal Back - PN: Normal Breast - PN: Not Done Lungs - PN: Normal Heart - PN: Normal Thyroid - PN: Normal Neurologic - PN: Normal HEENT - PN: Normal General - PN: Normal FHR - Baseline A Provider: 140 Membranes, Provider: Intact Contraction Comments Provider: None Comments, ACOG Physical Exam: Throat without erythema, exudates, or tonsillitis, pulmonary exam lois r to auscultation bilaterally, IP Hx Assessment: The History has been Updated EGA AdmitDate IP: 34.4 Vital Signs Provider: Reviewed; Within Normal Limits IP Chief Complaint: Illness; Maternal discomfort NICHD Variability Prov Fetus A: Moderate 6-25bpm NICHD Accel Fetus A IP Provider: 10X10 FHR Category Provider Fetus A: Category I NICHD Decel Fetus A IP Provider: None Genitourinary Exam: Normal DTRs - PN: Normal
== END 2018-10-06 14:02 | disposition home or self-care (01) ==
LOC: C.EROB 11:29
DX: O99.513 Diseases of the respiratory system complicating pregnancy, third trimester (principal); Z3A.34 34 weeks gestation of pregnancy

== ENCOUNTER 2018-10-11 13:44 | Emergency (ER) | payer MEDICAID ==
[2018-10-11 14:45] LABS: SQUAMOUS EPITHIAL 8 /hpf (0-5); URINE BACTERIA OCC (<OCC); URINE BILIRUBIN NEGATIVE (NEGATIVE); URINE BLOOD NEGATIVE (NEGATIVE); URINE CLARITY Hazy (Clear); URINE COLOR Yellow (YELLOW); URINE GLUCOSE (UA) NORMAL (Normal); URINE LEUKOCYTE ESTERASE 3+ Leu/uL (Negative); URINE PROTEIN NEGATIVE (NEGATIVE); URINE UROBILINOGEN NORMAL mg/dL (0.2-1.0)
--- NOTE | 2018-10-11 15:06 | US ---
Indication: s/p fall Comparison: OB limited ultrasound performed 06/08/18 Technique: Real-time ultrasound was performed through the pelvis. Findings: There is a single living fetus in cephalic presentation. Amniotic fluid volume appears within normal limits, 13.9 cm. Posterior placenta. The placenta is not previa. There are no adnexal masses or cysts evident. Cervix length measures approximately 3.7 cm. The study was performed for the emergent evaluation status post fall, and the whole anatomic survey of the fetus was not performed. This should be performed on an outpatient elective basis as clinically warranted. Measurements and calculations: Fetus has a composite sonographic age of 34 weeks 1 day. This calculation is based on the biparietal diameter, head circumference, abdominal circumference, and femur length. Estimated heart rate 140.7 beats per min. Estimated weight 2291 g. Biophysical profile: movements 2/2 breathing 2/2 tone 2/2 Amniotic fluid 2/2 Total score impression: 05/17 Impression: Single living fetus with a composite sonographic age of 34 weeks 1 day. Estimated heart rate 140.7 beats per min. Biophysical profile of 8 out of 8.
[2018-10-11 16:25] VITALS: RESP 20; TEMP 98.2
--- NOTE | 2018-10-11 17:08 | C.PDOC ---
History Of Present Illness 28-year-old female, who is currently 35 weeks , presents to the ED for evaluation after she sustained a fall at home earlier today. Patient states that she slipped and fell, and landed on to her right buttocks in a seated position. She was seen by the LAP CUTTER in labor and delivery floor, underwent an ultrasound and was cleared to report to the ED for further evaluation. Patient denies head injury, loss of consciousness, neck pain, nausea, vomiting, vaginal bleeding/discharge. Time Seen by Provider: 10/11/18 16:14 Chief Complaint (Nursing): Back Pain History Per: Patient History/Exam Limitations: no limitations Onset/Duration Of Symptoms: Hrs Current Symptoms Are (Timing): Still Present Quality Of Discomfort: "Pain" Additional History Per: Patient Past Medical History Reviewed: Historical Data, Nursing Documentation, Vital Signs Vital Signs: Last Vital Signs Temp 98.2 F 10/11/18 16:20 Pulse 91 H 10/11/18 16:20 Resp 20 10/11/18 16:20 BP 121/72 10/11/18 16:20 Pulse Ox 96 10/11/18 16:20 - Medical History PMH: No Chronic Diseases Surgical History: No Surg Hx - [facility] Procedures DELIVERY OF PRODUCTS OF CONCEPTION, EXTERNAL APPROACH (01/14/16) REPAIR PERINEUM MUSCLE, OPEN APPROACH (04/22/17) Family History: States: Unknown Family Hx - Social History Hx Tobacco Use: No Hx Alcohol Use: No Hx Substance Use: No - Immunization History Hx Tetanus Toxoid Vaccination: No Hx Influenza Vaccination: No Hx Pneumococcal Vaccination: No Review Of Systems Gastrointestinal: Negative for: Nausea, Vomiting Genitourinary: Negative for: Vaginal Discharge, Vaginal Bleeding Musculoskeletal: Positive for: Other (right buttock pain ) Neurological: Negative for: Other (head injury, LOC ) Physical Exam - Physical Exam Appears: Non-toxic, No Acute Distress Skin: Normal Color, Warm, Dry Head: Atraumatic, Normacephalic Eye(s): bilateral: Normal Inspection Oral Mucosa: Moist Neck: Supple Chest: Symmetrical, No Deformity, No Tenderness Cardiovascular: Rhythm Regular, No Murmur Respiratory: Normal Breath Sounds, No Rales, No Rhonchi, No Wheezing Gastrointestinal/Abdominal: Soft, No Tenderness, No Guarding, No Rebound Back: No Vertebral Tenderness, No Paraspinal Tenderness Extremity: Tenderness (over right buttock) Neurological/Psych: Oriented x3, Normal Speech, Normal Cognition ED Course And Treatment O2 Sat by Pulse Oximetry: 96 (on RA) Pulse Ox Interpretation: Normal Medical Decision Making Medical Decision Making: Progress: Urinalysis and ultrasound ordered and reviewed. Patient given Tylenol PO. Disposition Counseled Patient/Family Regarding: Diagnosis, Need For Followup - Disposition Disposition: HOME/ ROUTINE Disposition Time: 17:07 Condition: STABLE Instructions: Movement, Contusion (DC), How to Tell When Labor Starts Forms: Gen Discharge Inst Indonesian, MD [employer] [facility] (Indonesian) - POA Present On Arrival: None - Clinical Impression Clinical Impression: Contusion of back, Fall, Third trimester - Scribe Statement The provider has reviewed the documentation as recorded by the Scribe (Jeannie Huizar) Provider Attestation: All medical record entries made by the Scribe were at my direction and personally dictated by me. I have reviewed the chart and agree that the record accurately reflects my personal performance of the history, physical exam, medical decision making, and the department course for this patient. I have also personally directed, reviewed, and agree with the discharge instructions and disposition.
[2018-10-11 17:30] VITALS: BP 129/73; PULSE 97
[2018-10-11 17:43] VITALS: O2SAT 96
== END 2018-10-11 17:29 | disposition home or self-care (01) ==
LOC: C.ER 13:44 → C.EROB 13:44 → C.ER 17:29
DX: S30.0XXA Contusion of lower back and pelvis, initial encounter (principal); W01.0XXA Fall on same level from slipping, tripping and stumbling without subsequent striking against object, initial encounter; Y92.009 Unspecified place in unspecified non-institutional (private) residence as the place of occurrence of the external cause; O9A.213 Injury, poisoning and certain other consequences of external causes complicating pregnancy, third trimester; Z3A.35 35 weeks gestation of pregnancy

== ENCOUNTER 2018-11-12 14:08 | Inpatient (IN) | payer MEDICAID ==
--- NOTE | 2018-11-12 16:32 | OBHP ---
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, no active lesions - Pt ambulated for 1 hour and made cervical change from 60/-3 to /-1 - will admit for labor and ambulate and start Gene Presentation-Admit: Vertex FHR - Baseline A Provider: 140s Membranes, Provider: Intact Contraction Comments Provider: irregular Gestation - Est Wks by US: 39.6 Pool Provider: Negative EGA AdmitDate IP: 39.6 Vital Signs Provider: Reviewed; Within Normal Limits IP Chief Complaint: Uterine contractions; Vaginal bleeding; Maternal discomfort NICHD Variability Prov Fetus A: Moderate 6-25bpm NICHD Accel Fetus A IP Provider: 15X15 FHR Category Provider Fetus A: Category I NICHD Decel Fetus A IP Provider: None Dilatation, Provider: 4 Effacement, Provider: 70 Station, Provider: -1 Datetime: 10/11/2018 14:13 Pelvic Type - PN: Adequate Extremities - PN: Normal Abdomen - PN: Normal Back - PN: Normal Breast - PN: Normal Lungs - PN: Normal Heart - PN: Normal Thyroid - PN: Normal Neurologic - PN: Normal HEENT - PN: Normal General - PN: Normal IP Hx Assessment: The History has been Reviewed and is Current Genitourinary Exam: Normal DTRs - PN: Normal
[2018-11-12] MEDS: Lactated Ringer's 1,000 ML IV SCH ×2 (16:45→20:02)
[2018-11-12 16:59] LABS: BASO # 0.1 K/uL (0.0-0.2); BASO % 0.5 % (0.0-2.0); EOS # 0.1 K/uL (0.0-0.7); EOS % 0.6 % (0.0-4.0); HEMOGLOBIN 11.1 g/dL (11.0-16.0); LYMPH # 1.8 K/uL (1.0-4.3); LYMPH % 15.3 % (20.0-40.0); MEAN CELL VOLUME 78.9 fL (81.0-99.0); MEAN CORPUSCULAR HEMOGLOBIN 25.7 pg (27.0-31.0); MEAN CORPUSCULAR HGB CONC 32.6 g/dL (33.0-37.0); MEAN PLATELET VOLUME 8.3 fL (7.2-11.7); MONO # 0.8 K/uL (0.0-0.8); NEUT # 8.9 K/uL (1.8-7.0); NEUT % 76.6 % (50.0-75.0); RBC 4.33 Mil/uL (3.80-5.20); RED CELL DISTRIBUTION WIDTH 15.6 % (11.5-14.5); WHITE BLOOD COUNT 11.6 K/uL (4.8-10.8)
[2018-11-12] MEDS ORDERED: Penicillin G 5 Million Unit Vial IVPB ONE ×2 (17:00→17:06)
[2018-11-12 17:05] LABS: SQUAMOUS EPITHIAL 11 /hpf (0-5); URINE BACTERIA FEW (<OCC); URINE BILIRUBIN NEGATIVE (NEGATIVE); URINE BLOOD 2+ (NEGATIVE); URINE CLARITY Hazy (Clear); URINE COLOR Yellow (YELLOW); URINE GLUCOSE (UA) NORMAL (Normal); URINE LEUKOCYTE ESTERASE 2+ Leu/uL (Negative); URINE PROTEIN NEGATIVE (NEGATIVE); URINE UROBILINOGEN NORMAL mg/dL (0.2-1.0)
[2018-11-12] MEDS ORDERED: Oxytocin 20 units in LR 2,000 ML IV ONE (20:34)
[2018-11-12] MEDS ORDERED: Lidocaine Hydrochloride 5 ML INJ ONE (20:39)
--- NOTE | 2018-11-12 20:55 | OBDS ---
DELIVERY PERSONNEL Delivery Doctor: Tl Ryan DO Property Man: Olimpia Kaufman RN MATERNAL INFORMATION Delivery Anesthesia: None Provider Comments: Baby delivered in cephalic DANIA position. Nuchal and body cord loose, reducable. Cord clamped and cut, Placenta delivered intact. superfical vaginal tear repaired with 2-0 monocryl in interrupted fashion. Hemostasis achieved, Fundus Firm, Pitocin running. Pitocin started LABOR SUMMARY EDC: 11/13/2018 00:00 No. Babies in Womb: 1 Attempted: No Labor Anesthesia: None LABOR INFORMATION Onset of Labor: 11/12/2018 09:00 Complete Dilatation: 11/12/2018 20:25 Group B Beta Strep: Negative MEMBRANES Membranes Rupture Method: Spontaneous Rupture of Membranes: 11/12/2018 20:29 Length of Rupture (hrs): 0.02 STAGES OF LABOR Stage 1 hrs: 11 Stage 1 min: 25 Stage 2 hrs: 0 Stage 2 min: 5 Stage 3 hrs: 0 Stage 3 min: 3 Total Time in Labor hrs: 11 Total Time in Labor min: 33 VAGINAL DELIVERY Episiotomy: None Laceration Extension: First Degree Laceration Type: Vaginal Laceration Repair: Yes Laceration Repair Note: 2-0 monocryl used interrupted Initial Vag Sponge Count: 10 Final Vag Sponge Count: 10 BABY A INFORMATION Delivery Date/Time: 11/12/2018 20:30 Method of Delivery: Vaginal Born in Route : No : N/A Forceps: N/A Vacuum Extraction: N/A Shoulder Dystocia : No SHOULDER DYSTOCIA BABY A Infant Delivery Date/Time: 11/12/2018 20:30 PRESENTATION/POSITION BABY A Presentation: Cephalic Cephalic Presentation: Vertex Vertex Position: Left Occipital Anterior Breech Presentation: N/A PLACENTA INFORMATION BABY A Placenta Delivery Time : 11/12/2018 20:33 Placenta Method of Delivery: Spontaneous Placenta Status: Delivered SCORES BABY A Heart Rate 1 min: >100 bpm Resp Effort 1 min: Good Cry Reflex Irritability 1 min: Cough or Sneeze or Pulls Away Muscle Tone 1 min: Active Motion Color 1 min: Body [place], Extremities Blue SCORE 1 MIN: 9 Heart Rate 5 min: >100 bpm Resp Effort 5 min: Good Cry Reflex Irritability 5 min: Cough or Sneeze or Pulls Away Muscle Tone 5 min: Active Motion Color 5 min: Body [place], Extremities Blue SCORE 5 MIN: 9 INFORMATION BABY A Gestational Age at Delivery: 39.6 Gestational Status: Term Infant Outcome : Liveborn Condition : Stable Infant Sex: Male IDENTIFICATION/MEDS BABY A ID Band Number: [id number] ID Band Location: Left Leg; Left Arm Sensor Applied: Yes Sensor Number: [id number] Sensor Location : Cord Clamp Vitamin K Given : Aquamephyton 1 mg IM; Left Thigh Erythromycin Given: Given Both Eyes WEIGHT/LENGTH BABY A Infant Birthweight (gms): 3280 Weight (lb): 7 Weight (oz): 4 Infant Length Inches: 20.00 Infant Length cms: 50.8 CORD INFORMATION BABY A No. Cord Vessels: 3 Nuchal Cord : Around Neck x1, Loose Cord Blood Taken: No Suction: Mouth; Nose
[2018-11-12] MEDS ORDERED: Benzocaine/Menthol 20%-0.5% Topical Spray (60 ml) TOP PRN (20:56)
[2018-11-12] MEDS ORDERED: Oxycodone/Acetaminophen 5/325 mg Tab PO PRN (20:59)
[2018-11-13] MEDS: Multiple Vitamins Tab PO SCH (09:20)
[2018-11-13 11:18] LABS: BASO % 0.3 % (0.0-2.0); EOS # 0.1 K/uL (0.0-0.7); EOS % 0.6 % (0.0-4.0); HEMOGLOBIN 10.3 g/dL (11.0-16.0); LYMPH # 1.8 K/uL (1.0-4.3); LYMPH % 13.4 % (20.0-40.0); MEAN CELL VOLUME 78.8 fL (81.0-99.0); MEAN CORPUSCULAR HEMOGLOBIN 26.2 pg (27.0-31.0); MEAN CORPUSCULAR HGB CONC 33.3 g/dL (33.0-37.0); MEAN PLATELET VOLUME 8.5 fL (7.2-11.7); MONO % 7.1 % (0.0-10.0); NEUT # 10.6 K/uL (1.8-7.0); NEUT % 78.6 % (50.0-75.0); RBC 3.93 Mil/uL (3.80-5.20); RED CELL DISTRIBUTION WIDTH 15.9 % (11.5-14.5); WHITE BLOOD COUNT 13.5 K/uL (4.8-10.8)
[2018-11-13 11:42] LABS: ALB/GLOB RATIO 1.1 (1.0-2.1); ALBUMIN 2.7 g/dL (3.5-5.0); ALT/SGPT 12 U/L (9-52); AST/SGOT 21 U/L (14-36); BLOOD UREA NITROGEN 5 mg/dL (7-17); CALCIUM 8.6 mg/dl (8.6-10.4); GFR NON-AFRICAN AMERICAN > 60
[2018-11-13] MEDS ORDERED: Potassium Chloride 20 mEq ER Tab PO ONE (16:17)
--- NOTE | 2018-11-13 19:10 | OBPPN ---
Datetime: 11/13/2018 08:42 PP Pain Prov: Within normal limits PP Nausea Prov: Denies PP Flatus Prov: Yes PP BM Prov: No PP Breasts Prov: Normal PP Heart Prov: Normal PP Lungs Prov: Normal PP Abdomen/Uterus Prov: Normal PP Lochia Prov: Normal PP CVA Tenderness Prov: Normal PP Extremities Prov: Normal PP C/S Incision Prov: Not Applicable PP Progress Prov: Normal PP Comments Phys Exam Prov: VSS PE: Gen: no acute distress Heart: RRR, no murmurs auscultated Lungs: CTA b/l, no W/R/R Abd: soft, nontender, +BS, fundal height is 1 fingerbreadth below umbilicus Ext: no edema, nontender PP Impression Prov: Normal progression PP Plan Prov: Continue present management PP Progress Note Prov: Patient was seen and examined at bedside in no acute distress. Patient report s minimal pain today and states she is feeling better than yesterday. She is without di fficulty. Patient admits to passing flatus, but has not had a BM. She is tolerating her diet and ambu lating without difficulty. Patient otherwise has no complaints. She denies chest pain, dyspnea, abdom inal pain, nausea, vomiting, fevers, leg pain, dysuria. Plan/Assessment: 28 year old s/p PPD#1 - Continue Motrin prn for pain - Continue Colace for constipation. - Continue Multivitamins. - Encourage breast feeding and ambulation. - Continue current management. Plan discussed with Dr. Scott. Rosario Garcia, PGY2 Attending Note: patient seen, evaluated and examined by me with the Resident. I agree with the ab ove as documented. Clinically stable. Vital Signs Provider PP: Reviewed; Within Normal Limits
[2018-11-14 08:10] VITALS: BP 118/77; PULSE 80; RESP 18; TEMP 98.8; O2SAT 99
[2018-11-14 08:45] LABS: ALB/GLOB RATIO 1.1 (1.0-2.1); ALBUMIN 3.1 g/dL (3.5-5.0); ALT/SGPT 12 U/L (9-52); AST/SGOT 25 U/L (14-36); BLOOD UREA NITROGEN 7 mg/dL (7-17); CALCIUM 8.7 mg/dl (8.6-10.4); GFR NON-AFRICAN AMERICAN > 60
[2018-11-14] MEDS: Multiple Vitamins Tab PO SCH (09:44)
[2018-11-14] MEDS ORDERED: Potassium Chloride 20 mEq ER Tab PO ONE (13:00)
[2018-11-14] MEDS ORDERED: Influenza Vaccine 60 mcg/0.5 mL SYR (4YR UP) IM ONE (14:31)
--- NOTE | 2018-11-14 19:13 | OBPPN ---
Datetime: 11/14/2018 07:02 PP Pain Prov: Within normal limits PP Nausea Prov: Denies PP Flatus Prov: Yes PP BM Prov: Yes PP Heart Prov: Normal PP Lungs Prov: Normal PP Extremities Prov: Normal PP Comments Phys Exam Prov: Gen: no acute distress, afebrile Cardiac: Normal S1, S2 no murmurs, normal pulses Respiratory: CTAB, normal breathing pattern, no RRR Abdominal: soft, non tender x4, normal bowel sounds x4 : Uterus lies to the left of the umbilicus, fundal height 1 fingers breath below umbilicus Extremities: no edema x4, no leg swelling or tenderness, steady gait appreciated b/l. Normal S1,S2 no murmurs, normal breathing pattern no RRR, w/ normal pulses. Stead y gait. PP Impression Prov: Normal progression PP Plan Prov: consult; Discharge PP Progress Note Prov: 28 yo Female s/p PPD2 seen and examined at bedside this morning and is in NAD. Pt has been tolerating regular diet well, ambulating in the king, passing gas, having bowel movements, and urinating normally without discomfort with mild lochia. Pt denies any chest pain , headache, abdominal pain, SOB or fevers, leg pain, or dysuria. She is taking Motrin for pain PRN bu t otherwise has no complaints. Pt is both breast feeding and using bottle feeds. A/P: 28yo s/p PPD#2. - continue Motrin and Percocet for pain management as needed - encourage ambulation - encourage -requesting a circumcision and procedure, risks and possible complications fully reviewed with wanda soliman and verbalized understanding, requested to proceed and signed the consent. - ready for discharge [facility] PGY-1 IP PP Procedures: None Vital Signs Provider PP: Reviewed; Within Normal Limits
--- NOTE | 2018-11-14 19:19 | OBDCSUM ---
Datetime: 11/14/2018 15:03 Follow up at, Provider: Clinic Disch Instr Activity: Normal activity Disch Instr Diet: Regular Discharge Instructions, Provider: Routine instructions given Discharge Diagnosis, Provider: Term Delivered Discharge Time: 11/14/2018 16:00 Follow up in weeks, Provider: 6 weeks Disch Referrals: None Contraception discussed, Prov: Yes Disch Activity Restrictions: No exercising; No lifting; Minimize walking; Minimize stair-climbing; N o sexual activity; Nothing in vagina - [place], tampons, douche Discharge Comment, Provider: PPD # 2 S/P without complications H_H stable circumcision performed per her request Stable and Satisfactory condition and recovery Will D/C home with instructions and Rx for Motrin Advised to increase po water intake, continue PNV daily 'Advised to pelvic rest x 6-8 weeks Contraception after Delivery: Undecided Datetime: 11/14/2018 15:00 Discharged to, Provider: Home Follow up at, Provider: [facility] Disch Instr Activity: Normal activity Disch Instr Diet: Regular Discharge Diet restrict Prov: None Discharge Time: 11/14/2018 16:30 Follow up in weeks, Provider: December 15, 2018 Disch Referrals: None Disch Activity Restrictions: No exercising; No lifting; No driving; Minimize walking; Minimize stair -climbing; No sexual activity; Nothing in vagina - [place], tampons, douche
== END 2018-11-14 17:00 | disposition home or self-care (01) | DRG 373 ==
LOC: C.EROB 14:08 → C.4D 16:32 → C.4M 22:36
PROVIDERS: ADMIT Obstetrics & Gynecology; ATTEND Obstetrics & Gynecology
PROC: 10E0XZZ Delivery of Products of Conception, External Approach (ICD-10-PCS; principal; 2018-11-12)
PROC: 0HQ9XZZ Repair Perineum Skin, External Approach (ICD-10-PCS; 2018-11-12)
DX: O99.824 Streptococcus B carrier state complicating childbirth (principal); Z37.0 Single live birth; O69.81X0 Labor and delivery complicated by cord around neck, without compression, not applicable or unspecified; O70.0 First degree perineal laceration during delivery; Z3A.39 39 weeks gestation of pregnancy; O99.89 Other specified diseases and conditions complicating pregnancy, childbirth and the puerperium; K59.00 Constipation, unspecified

== ENCOUNTER 2019-01-29 12:54 | Emergency (ER) | payer MEDICAID ==
[2019-01-29 12:54] VITALS: BMI 29.6
[2019-01-29 13:06] VITALS: BP 110/73; PULSE 73; RESP 18; TEMP 98.6; O2SAT 98
--- NOTE | 2019-01-29 18:40 | C.PDOC ---
History Of Present Illness 28 y/o female presents to the ER complaining of vomiting and diarrhea which has been present for the past 3-4 days. Patient states that she had 1 vomiting and 4-5 episodes of diarrhea. Patient reports that her entire family is sick with similar symptoms at home. Denies having fever,chills, cough, abdominal pain, and recent travel. Chief Complaint (Nursing): Abdominal Pain History Per: Patient History/Exam Limitations: no limitations Onset/Duration Of Symptoms: Days Current Symptoms Are (Timing): Still Present Severity: Moderate Past Medical History Reviewed: Historical Data, Nursing Documentation, Vital Signs Vital Signs: Last Vital Signs Temp 98.6 F 01/29/19 13:03 Pulse 73 01/29/19 13:03 Resp 18 01/29/19 13:03 BP 110/73 01/29/19 13:03 Pulse Ox 98 01/29/19 13:03 - Medical History PMH: Denies: Depression, Diabetes, HTN Surgical History: No Surg Hx - [facility] Procedures DELIVERY OF PRODUCTS OF CONCEPTION, EXTERNAL APPROACH (11/12/18) REPAIR PERINEUM MUSCLE, OPEN APPROACH (04/22/17) REPAIR PERINEUM SKIN, EXTERNAL APPROACH (11/12/18) Family History: States: No Known Family Hx - Social History Hx Tobacco Use: No Hx Alcohol Use: No Hx Substance Use: No - Immunization History Hx Tetanus Toxoid Vaccination: No Hx Influenza Vaccination: Yes Hx Pneumococcal Vaccination: No Review Of Systems Except As Marked, All Systems Reviewed And Found Negative. Constitutional: Negative for: Fever, Chills Respiratory: Negative for: Cough Gastrointestinal: Positive for: Vomiting, Diarrhea. Negative for: Abdominal Pain Physical Exam - Physical Exam Appears: Non-toxic, No Acute Distress Skin: Normal Color, Warm, Dry Head: Atraumatic, Normacephalic Eye(s): bilateral: Normal Inspection Nose: Normal Oral Mucosa: Moist Neck: Supple Chest: Symmetrical Cardiovascular: Rhythm Regular Respiratory: Normal Breath Sounds, No Rales, No Rhonchi, No Wheezing Gastrointestinal/Abdominal: Normal Exam, Soft, No Tenderness, No Guarding, No Rebound Neurological/Psych: Oriented x3, Normal Speech ED Course And Treatment O2 Sat by Pulse Oximetry: 98 (RA) Pulse Ox Interpretation: Normal Medical Decision Making Medical Decision Making: Patient has been discharged and instructed to follow up with PMD. Disposition - Disposition Referrals: [facility], [Non-Staff] - Disposition: HOME/ ROUTINE Disposition Time: 13:30 Condition: GOOD Additional Instructions: ANDRES CHRISTIE, thank you for letting us take care of you today. The emergency medical care you received today was directed at your acute symptoms. If you were prescribed any medication, please fill it and take as directed. It may take several days for your symptoms to resolve. Return to the Emergency Department if your symptoms worsen, do not improve, or if you have any other problems. Please contact your doctor or call one of the physicians/clinics you have been referred to that are listed on the Patient Visit Information form that is included in your discharge packet. Bring any paperwork you were given at discharge with you along with any medications you are taking to your follow up visit. Our treatment cannot replace ongoing medical care by a primary care provider outside of the emergency department. Thank you for allowing the [facility] team to be part of your care today. Drink fluids throughout the day to maintain hydration. Follow up with your primary care doctor in 2-3 days for re-evaluation and further management. Instructions: Viral Syndrome (DC) Forms: [email or web address] (Swiss), Work Excuse - Clinical Impression Clinical Impression: Viral syndrome - Scribe Statement The provider has reviewed the documentation as recorded by the Royal Arreola Provider Attestation: All medical record entries made by the Carolibbolivar were at my direction and personally dictated by me. I have reviewed the chart and agree that the record accurately reflects my personal performance of the history, physical exam, medical decision making, and the department course for this patient. I have also personally directed, reviewed, and agree with the discharge instructions and disposition.
== END 2019-01-29 13:56 | disposition home or self-care (01) ==
LOC: C.ER 12:54
DX: B34.9 Viral infection, unspecified (principal)